=== PATIENT | male | born 1960 | race Caucasian/White ===

== ENCOUNTER 2020-02-07 13:46 | Emergency (ER) | payer BC, SELFPAY ==
[2020-02-07 13:49] VITALS: BP 114/86; PULSE 100; RESP 18; TEMP 36.3; O2SAT 98
--- NOTE | 2020-02-07 15:12 | ED.NEUROSD ---
HPI - Neuro Symptoms/Deficit General Chief Complaint: Neuro Symptoms/Deficit Stated Complaint: neuro Time Seen by Provider: 02/07/20 13:55 Source: patient Mode of arrival: ambulatory Limitations: no limitations History of Present Illness HPI Narrative: This patient is a 60 year old male who presents for evaluation of left facial droop. He states 2 days ago he noticed pain behind his left ear intermittently. He noticed yesterday afternoon he was developing left facial droop and the sensation of closing his eyes at different times. He told his today so they came to ER for evaluation. He denies headache, dizziness, nausea, vomiting, focal weakness or numbness. He has no complaints. He reports he has family members with history of fischer's palsy. Onset (ago): day(s) (1) Related Data Home Medications Medication Instructions Recorded Confirmed finasteride 5 mg tablet 5 mg PO DAILY 12/08/19 12/08/19 metformin 1,000 mg tablet 1,000 mg PO DAILY 12/08/19 12/08/19 rosuvastatin 40 mg tablet 40 mg PO DAILY 12/08/19 12/08/19 sertraline 25 mg tablet 25 mg PO DAILY 12/08/19 12/08/19 tramadol 50 mg tablet 50 mg PO Q6H PRN 12/08/19 12/08/19 trazodone 50 mg tablet 100 mg PO .QHS tablet 12/08/19 12/08/19 Allergies Allergy/AdvReac Type Severity Reaction Status Date / Time Sulfa (Sulfonamide Allergy Unknown Unknown Verified 02/07/20 13:53 Antibiotics) terbinafine Allergy Unknown Rash Verified 02/07/20 13:53 Review of Systems Review of Systems: All systems reviewed & are unremarkable except as noted in HPI and below Constitutional: Constitutional: Denies chills and Denies fever(s) Eyes: Eyes: Denies change in vision ENT: Denies dizziness and Denies sore throat Cardiovascular: Cardiovascular: Denies chest pain Respiratory: Respiratory: Denies cough and Denies dyspnea Gastrointestinal: Gastrointestinal: Denies abdominal pain, Denies diarrhea, Denies nausea and Denies vomiting Genitourinary: Genitourinary: Denies oliguria Neurologic: Denies vertigo, Denies dizziness, Denies syncope, Denies headache(s), Denies focal weakness and Denies weakness FOR[facility]LY [facility], [facility] Past Medical History Medical History (Updated 02/07/20 @ 15:18 by Esther Maddox MD) Diabetes mellitus Mixed hyperlipidemia Umbilical hernia Social History Social History Smoking status: Never smoker Alcohol intake: never Exam Narrative: Exam Narrative: GENERAL: Well-appearing, well-nourished, and in no acute distress. HEAD: Normocephalic, atraumatic EYES: PERRLA and EOMI, conjunctiva clear without discharge EARS: TM's clear bilaterally without erythema or dullness NOSE: Nares clear, no rhinorrhea or epistaxis THROAT:Mucous membranes moist, Oropharynx normal without erythema, exudate, peritonsillar swelling or fluctuance NECK: Supple, without lymphadenopathy or mass RESPIRATORY: No respiratory distress, Airway patent, Respirations non-labored, Clear to auscultation without rales, rhonchi or wheeze HEART: Regular rate and rhythm. No murmur heard. Normal peripheral pulses. ABDOMEN: Soft, nontender, nondistended, normal active bowel sounds. No masses. No rebound or guarding, No organomegaly. EXTREMITIES: No edema, normal strength with full range of motion. SKIN: Warm, dry, normal color without rash NEURO: Alert and oriented x3. . No focal deficits. PSYCH: Normal mood and affect. 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 I discus
[2020-02-07 15:32] VITALS: BP 138/77; PULSE 75; RESP 18; TEMP 36.8; O2SAT 96
== END 2020-02-07 15:33 | disposition home or self-care (01) ==
PROVIDERS: Emergency Provider General Practice; PCP Family Medicine
DX: G51.0 Bell's palsy (principal); E11.9 Type 2 diabetes mellitus without complications; E78.2 Mixed hyperlipidemia; Z79.84 Long term (current) use of oral hypoglycemic drugs
CPT/HCPCS: 99283

== ENCOUNTER 2022-06-12 15:17 | Outpatient (CLI) | payer BC, SELFPAY ==
--- NOTE | ~2022-06-12 | XR_ITS ---
XR hip LT min 3V w AP pelvis DATE: 06/12/2022 15:58 INDICATION: Left hip pain TECHNIQUE: AP pelvis. 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 Normal alignment at the pubic symphysis and sacral iliac joints. No fracture or dislocation, avascular necrosis or bone destruction of the left hip. Left hip joint sp demar appears well preserved. IMPRESSION: Negative left hip Transitional lumbosacral vertebra Reviewed, dictated and finalized at location B. 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
--- NOTE | ~2022-06-12 | XR_ITS ---
XR shoulder RT min 2V DATE: 06/12/2022 15:58 INDICATION: Bilateral shoulder pain TECHNIQUE: 4 views COMPARISON: None FINDINGS: No fracture or dislocation, periosteal reaction or bone destruction or abnormal soft tissue calcification of the right shoulder. 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
--- NOTE | ~2022-06-12 | XR_ITS ---
XR shoulder LT min 2V DATE: 06/12/2022 15:58 INDICATION: Left shoulder pain TECHNIQUE: 4 views COMPARISON: None FINDINGS: Old healed left clavicular shaft fracture. No recent fracture or dislocation, periosteal re action or bone destruction or significant abnormal calcification of the left shoulder is detected. IMPRESSION: No significant abnormality Old healed left clavicular shaft fracture Reviewed, dictated and finalized at location B. 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
== END 2022-06-12 15:18 | disposition home or self-care (01) ==
LOC: ANHIMG 15:25
PROVIDERS: PCP Family Medicine; Visit Provider Family Medicine
DX: M25.552 Pain in left hip (principal); M25.512 Pain in left shoulder; M25.511 Pain in right shoulder
CPT/HCPCS: 73030; 73502